=== PATIENT | female | born 1970 | race Caucasian/White ===

== ENCOUNTER 2019-01-05 20:55 | Emergency (ER) | payer OTHER, SELFPAY ==
[2019-01-05 20:55] VITALS: BP 131/86; PULSE 94; RESP 16; TEMP 36.3; O2SAT 96; BMI 28.9
--- NOTE | 2019-01-05 21:43 | EKG12_ITS ---
Test Reason : SOB Blood Pressure : / mmHG Vent. Rate : 092 BPM Atrial Rate : 092 BPM P-R Int : 152 ms QRS Dur : 074 ms QT Int : 382 ms P-R-T Axes : 063 012 029 degrees QTc Int : 472 ms Normal sinus rhythm Low voltage QRS Cannot rule out Inferior infarct , age undetermined Abnormal ECG Confirmed by MIKE ESQUIVEL, MURRAY ([id number]), news editor SHAVONNE CARCAMO ([id number]) on 01/08/2019 9:14:55 AM Referred By: LEONEL Confirmed By:MURRAY MCKEON MD
--- NOTE | 2019-01-05 21:43 | RAD_ITS ---
STUDY: X-RAY CHEST REASON FOR EXAM: Female, 48 years old. Chest pain and cough TECHNIQUE: Single AP portable view of the chest. COMPARISON: None. FINDINGS: The lungs are clear and expanded. There is no demonstrated pleural abnormality. Normal size heart. Normal mediastinum and niels. Normal visualized pulmonary arteries. Normal visualized aortic arch and descending thoracic aorta. Normal visualized thoracic spine. Normal visualized ribs, clavicles, and shoulders. There is no demonstrated abnormality of the visualized soft tissue structures of the upper abdomen. RAD/Chest 1 View (Portable) IMPRESSION: Normal x-ray examination of the chest. Electronically Signed: Abundio Washington MD at 21:57 EDT , Service support ,
--- NOTE | 2019-01-05 21:46 | ED.RN ---
NO OLD EKGS IN MUSE
[2019-01-05 22:04] VITALS: PULSE 90; RESP 18
[2019-01-05] MEDS: Ipratropium/Albuterol Sulfate 3 ML AMPUL.NEB INHALATION (22:05)
[2019-01-05 22:12] VITALS: BP 109/87; PULSE 90; RESP 20; O2SAT 93
[2019-01-05 22:12] LABS: Absolute Lymphocyte Count 3.09 X10^3/ul (0.83-4.51); Absolute Neutrophil Count 4.4 X10^3/uL (2.0-7.7); Basophil# 0.02 X10^3/uL; Basophil% 0.2 % (0-1); Differential Indicated SCAN CRITERIA MET; Eosinophil# 0.19 X10^3/uL; Eosinophils% 2.3 % (0-5); Hematocrit 40.7 % (37-47); Hemoglobin 14.1 g/dl (12.0-15.0); Lymphocyte # 3.09 X10^3/ul (4.0); Lymphocyte % 37.1 % (19-41); Mean Corp Hgb Conc 34.6 g/gl (32-36); Mean Corpuscular Hgb 30.7 pg (27.0-32.0); Mean Corpuscular Volume 88.5 fL (81-99); Mean Platelet Vol. 9.6 fl (6.2-12.0); Monocyte# 0.62 X10^3/uL; Monocyte% 7.4 % (0-10); Neutrophil % 52.9 % (47-70); POSITIVE COUNT NO; POSITIVE DIFFERENTIAL NO; POSITIVE MORPHOLOGY YES; Platelet Count 205 K/mm3 (150-450); RBC Distribution Width CV 12.3 % (11.6-14.6); RBC Distribution Width SD 39.7 fl (35.1-43.9); White Blood Count 8.3 K/mm3 (4.4-11.0)
[2019-01-05 22:27] LABS: Anion Gap 7 (5-15); BUN 13 mg/dL (7-18); BUN/Creat Ratio 15.6 RATIO (10-20); Calcium,Total 8.7 mg/dL (8.5-10.1); Chloride 109 mmol/L (98-107); Creatinine, Serum 0.84 mg/dL (0.55-1.02); EST Glomerular Filtration Rate 77 mL/min (>60); Est Glom Filt Rate - Afr Amer 94 mL/min (>60); Estimated Creatinine Clearance 67.75 ml/min; Glucose 111 mg/dL (74-106); Potassium 3.4 mmol/L (3.5-5.1); Sodium Level 142 mmol/L (136-145)
[2019-01-05 22:28] LABS: Differential Comment SCANNED
--- NOTE | 2019-01-05 22:48 | ED.VISSUMM ---
- ER Visit Summary Date of Service: 01/05/19 Chief Complaint: Shortness of breath History of Present Illness: The patient is a 48 F with shortness of breath and chest pain for 4 days. Symptoms came on gradually. Symptoms are continuous. Associated with an anxiety feeling. Symptoms are worse when she breathes and moves. She tried ibuprofen with no improvement. Most of the pain is over her upper chest, worse on the right side. Patient reports a dry cough. Denies fevers. Denies hemoptysis. Denies any leg pain or swelling. Denies any history of heart disease or lung disease. Denies any history of blood clots, travel, immobilization, or recent surgery. She is a smoker. Denies hormone medication. Physical Examination: Afebrile and vital signs are unremarkable. Patient is alert and oriented. No acute distress. Speaking comfortably. Heart regular rate and rhythm. Lungs are diminished in all [place]. No wheeze. Extremities nontender with no edema. Skin normal in color without diaphoresis or pallor. Test Results: EKG showed sinus rhythm at a rate of 92. No sign of acute ischemia or infarction pattern. CBC and BMP unremarkable. Troponin normal. Chest x-ray was normal. Emergency Department Course and Treatment: Patient is PERC negative. Low risk for ACS. Nothing to suggest dissection. EKG showed no sign of acute ischemia or infarction. Troponin was normal. Chest x-ray was unremarkable. The only abnormal objective finding was diminished breath sounds throughout all [place]. Patient was treated with DuoNeb. Minimal improvement. Again, x-ray was reassuring. No sign of sepsis or infection. Patient does have a history of anxiety and has been dealing with a lot of anxiety issues. I suspect this could be causing some of her symptoms. The remainder of her work-up is unremarkable. No further emergent testing is indicated. No indication for hospitalization. Patient declined pain medicine here. Declined anything for anxiety. She will follow-up with her doctor. Return for any new or worsening issues. Treatment Plan: As above Disposition: Discharge Impression: 1. Atypical chest pain This note was generated with [employer] software. It may contain incorrect words, spelling, and punctuation that were not noted in review of the chart prior to signing ED Disposition - Plan for ED Patient: Referrals: Care Physician,No Primary [Primary Care Provider] -
--- NOTE | 2019-01-05 22:53 | ED.DEP ---
ED Disposition - Plan for ED Patient: Instructions: ED Chest Pain Atypical Unkn Cause Referrals: Roshni Addison [NON-STAFF] - As Needed Violet Doss MD [STAFF PHYSICIAN] -
[2019-01-05 23:10] VITALS: BP 119/79; PULSE 83; RESP 14; O2SAT 96
== END 2019-01-05 23:10 | disposition home or self-care (01) ==
LOC: ED 21:49
PROVIDERS: Emergency Provider Emergency Medicine
DX: R07.89 Other chest pain (principal); F32.9 Major depressive disorder, single episode, unspecified; F41.9 Anxiety disorder, unspecified; K21.9 Gastro-esophageal reflux disease without esophagitis; F17.200 Nicotine dependence, unspecified, uncomplicated
CPT/HCPCS: 71045; 80048; 84484; 85025; 93005; 94640; 99284; A4216